=== PATIENT | female | born 1980 | race Two or more races ===

== ENCOUNTER 2024-02-07 03:17 | Emergency (ER) | payer SELFPAY ==
[~2024-02-07] VITALS: Ht 167.6 cm; Wt 79.5 kg
[2024-02-07 03:32] VITALS: TEMP 98.7
[2024-02-07 04:06] LABS: BASOPHILS % (AUTO) 0.4 % (0.0-2.0); EOSINOPHILS % (AUTO) 0.8 % (1.0-6.0); HEMATOCRIT 36.6 % (36-46); HEMOGLOBIN 12.5 g/dL (12.0-16.0); LYMPHOCYTES # (AUTO) 2.4 K/uL (1.0-4.8); LYMPHOCYTES % (AUTO) 52.3 % (22.0-44.0); MEAN CORPUSCULAR HEMOGLOBIN 30.1 pg (26.0-34.0); MEAN CORPUSCULAR HGB CONC 34.3 G/dL (31.0-37.0); MEAN CORPUSCULAR VOLUME 88 fL (80-100); MONOCYTES # (AUTO) 0.4 K/uL (0.1-1.0); MONOCYTES % (AUTO) 8.5 % (2.0-9.0); NEUTROPHILS # (AUTO) 1.7 K/uL (1.8-7.7); PLATELET COUNT (AUTO) 196 K/uL (150-450); RED BLOOD CELL COUNT(AUTO) 4.16 MIL/uL (4.00-5.20); RED CELL DISTRIBUTION WIDTH 14.3 % (11.5-14.5); WHITE BLOOD COUNT (AUTO) 4.6 K/uL (4.5-11.0)
[2024-02-07 04:08] LABS: ANION GAP 10 mmol/L (8-16); CARBON DIOXIDE 24 mmol/L (22-29); CHLORIDE 105 mmol/L (98-107); CREATININE 0.68 mg/dL (0.60-1.30); GLOMERULAR FILTR. RATE CALC > 60 mL/min (>60); GLUCOSE,RANDOM 107 mg/dL (70-110); POTASSIUM 3.5 mmol/L (3.5-5.1); SODIUM SERUM 139 mmol/L (136-145); UREA NITROGEN, BLOOD 9 mg/dL (7-18)
[2024-02-07] MEDS: KETOROLAC TROMETHAMINE 30 MG/ML VIAL IVP ONE (04:31)
[2024-02-07 04:32] LABS: ALANINE AMINOTRANSFERASE 13 U/L (12-78); ALBUMIN 3.3 g/dL (3.4-5.0); ALKALINE PHOSPHATASE 93 U/L (46-116); ASPARTATE AMINOTRANSFERASE 18 U/L (15-37); BILIRUBIN,TOTAL 0.2 mg/dL (0.1-1.0); CREATINE KINASE, TOTAL ONLY 192 U/L (26-192); TOTAL PROTEIN, SERUM 6.9 g/dL (6.4-8.2); TROPONIN I-HIGH SENSITIVITY Less Than 4 ng/L (<51)
[2024-02-07 05:01] VITALS: BP 131/72; PULSE 60; RESP 16
== END 2024-02-07 05:07 | disposition home or self-care (01) ==
LOC: EMS 03:18
DX: R07.89 Other chest pain (principal); E83.51 Hypocalcemia; F17.210 Nicotine dependence, cigarettes, uncomplicated
CPT/HCPCS: 99285; 96374; 71045; 80053; 82550; 84484; 85025; 36415; 93005; J1885

== ENCOUNTER 2024-10-20 09:36 | Emergency (ER) | payer SELFPAY ==
[~2024-10-20] VITALS: Ht 170.2 cm; Wt 77.3 kg
[2024-10-20 09:43] VITALS: BP 147/43; PULSE 108; RESP 18; TEMP 98.6; O2SAT 100
[2024-10-20 09:59] LABS: COVID AG,FIA SOURCE NASAL SWAB
[2024-10-20 10:31] LABS: INFLUENZA TYPE B NEGATIVE FOR TYPE B (NEGATIVE); SARS-COV2 (COVID) ANTIGEN,FIA Negative (Negative)
[2024-10-20 10:40] LABS: INFLUENZA TYPE A POSITIVE FOR TYPE A (NEGATIVE)
[2024-10-20] MEDS ORDERED: BENZ-227 PO (11:22)
[2024-10-20] MEDS ORDERED: NICO-803 TD (11:31)
== END 2024-10-20 11:33 | disposition home or self-care (01) ==
LOC: EMS 09:42
DX: J10.1 Influenza due to other identified influenza virus with other respiratory manifestations (principal); F17.210 Nicotine dependence, cigarettes, uncomplicated; Z20.822 Contact with and (suspected) exposure to COVID-19
CPT/HCPCS: 87804; 99283; 99406